=== PATIENT | female | born 2000 | race African-American/Black ===

== ENCOUNTER 2025-03-12 08:42 | Outpatient (AMB) | payer OTHER, SELFPAY ==
--- NOTE | 2025-03-12 08:31 | A.OFFPC_ITS ---
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 Accompanied by: Self / Same As Patient Allergies No Known Allergies Allergy (Verified 03/12/25 08:47) Medication List - Last Reconciled 03/12/25 by Alexia Bejarano MD duloxetine 60 mg PO DAILY omeprazole 20 mg PO DAILY omeprazole 40 mg PO BID Tobacco use date assessed: 03/12/25 Dental Screening Dental Screen Date: 03/12/25 Did you have a dental visit in the last 12 months?: Yes Did you have a dental problem in the last 6 months where you did not have access to dental care?: No Was dental information given to patient?: Patient has dentist HPI HPI Comments History of Present Illness Details The patient is a 24-year-old female presenting to reestablish care and for a physical. Anxiety and Depression: The patient reports ongoing anxiety and depression, with high scores noted, PHQ9 score of 18, GAD7 score of 14. She has been non-adherent with her prescribed duloxetine. She recently started teletherapy with [facility] about two weeks ago and has had one session so far. Gastroesophageal Reflux Disease: The patient has a history of heartburn and has not been taking her prescribed omeprazole (Prilosec). She manages symptoms by drinking water, which provides occasional relief. Symptoms are sometimes triggered by spicy foods or can occur randomly, and are exacerbated by eating late at night or lying down after meals. She denies use of NSAIDs like ibuprofen or Aleve and uses only Tylenol. Fatigue: The patient reports feeling sluggish and having low energy every day. She has also not been taking her prescribed iron supplements. Health Maintenance: The patient had a gynecology appointment for a Pap smear but had to reschedule because she was on her period and has not yet made the new appointment. Medical History: - Anxiety - Depression - Gastroesophageal reflux disease - History of iron deficiency Medications: - Duloxetine for anxiety and depression (not currently taking) - Iron supplements (not currently taking ) - Omeprazole (Prilosec) for GERD (not cu rrently taking) - Tylenol as needed for pain Social History: - Employment: The patient is currently w orking. - Stress Management: The patient reports not really doing much for decompression or to get out of the house. - Hobbies and Interests: The patient was supposed to travel to [place] but cancelled and is now planning a trip to [place] in May. Review of Systems - Constitutional: Reports feeling sluggi sh and having low energy every day. - Gastrointestinal: Reports heartburn ma naged with water, which is sometimes effective. She reports regular bowel movements. - Psychiatric: Reports anxiety and depre ssion. Physical Exam - HEENT: Ears are clear on the left and right, with normal tympanic membranes and no redness. - Neck: No cervical lymph node enlargeme nt. Carotids are clear with no bruits. - Lungs: Clear to auscultation. - Cardiovascular: Normal heart sounds, s oft murmur noted. - Abdomen: Soft, non tender, non distend ed , with normal bowel sounds. - Extremities: No swelling in both legs. 2+ DP pulses Assessment and Plan 1. Anxiety and Depression - The patient's depression and anxiety s cores are high. - She has initiated therapy, which is a positive step. - She has been non-adherent with duloxet ine. - Plan is to restart duloxetine at a sta rting dose of 30 mg once daily to help manage symptoms in conjunction with therapy. - Will re-evaluate in three months. 2. Gastroesophageal Reflux Disease (GERD ) - The patient continues to experience he artburn and has been non-adherent with omeprazole. - Plan is to send a prescription for ome prazole to be taken daily for two weeks, one hour before eating, to control symptoms and allow healing. - Advised against eating late at night. 3. Fatigue and Health Maintenance - The patient reports daily fatigue and has not been taking her iron supplements. - She is also due for a gynecological ex am. - Plan includes ordering fasting blood w ork to check an iron profile, vitamin D, B12, and kidney function. 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 4. Follow-up - Plan for a follow-up visit in three mo nths to monitor medication tolerance, adherence, symptom improvement Discussion Notes I have discussed the plan with the patient. For her anxiety and depression, I have sent a prescription for duloxetine 30 mg daily, explaining that since she has been off it, we will restart at a lower dose. I explained that this, in addition to her ongoing therapy, will help improve her symptoms, and we will reassess in three months to see how she is doing, with the possibility of discontinuing it if she improves. For her heartburn, I explained the importance of taking omeprazole to prevent irritation and the potential for an ulcer, and a prescription was sent for her. I instructed her to take it for two solid weeks every day, about an hour before eating. I have provided her with a lab order for fasting blood work and emphasized the importance of completing it. I also stressed the need to call and reschedule her gynecology appointment. We will have a follow-up in three months. Patient Instructions - Please get your fasting blood work don e. I have given you the paper for the lab. - Start taking duloxetine 30 mg every da y for anxiety and depression. - For your heartburn, take omeprazole ev sivakumar day for two weeks. Take it about an hour before you eat. - Please follow through with your therap y sessions. - Call your plant electrical engineer's office to res chedule your appointment for a Pap smear. [facility] Medical History (Updated 03/12/25 @ 16:50 by Alexia Bejarano MD) Vitamin D deficiency Routine adult health maintenance Anemia, unspecified GERD (gastroesophageal reflux disease) Depression Anxiety Surgical History History of tonsillectomy Family History Mother Hypertension Family/Other No problems noted. Father Hypertension Diabetes mellitus Social History Housing: Apartment Patient Tobacco Use Status: Never used Tobacco e-Cigarette/Vaping Use: Never Used service: No Current occupational status: employed Current occupation: [employer] employee Cognitive needs: No Hearing needs: No Vision needs: No Questionnaire PHQ-9 Over the last 2 weeks, how often have you been bothered by any of the following problems? 1. Little interest or pleasure in doing things: more than half the days 2. Feeling down, depressed, or hopeless: more than half the days 3. Trouble falling or staying asleep, or sleeping too much: more than half the days 4. Feeling tired or having little energy: more than half the days 5. Poor appetite or overeating: more than half the days 6. Feeling bad about yourself - or that you are a failure or have let yourself or your family down: more than half the days 7. Trouble concentrating on things, such as reading the newspaper or watching television: more than half the days 8. Moving or speaking so slowly that other people could have noticed. Or the opposite - being so fidgety or restless that you have been moving around a lot more than usual: more than half the days 9. Thoughts that you would be better off or of hurting yourself in some way: more than half the days Total score: 18 Depression Screening Interpretation: Positive Depression Screening Done: Yes 47071 - PHQ-9 Billing: Yes Source: Developed by Drs. Maximo Chairez, Diane Tao, Rajendra Wilson and colleagues, with an educational melissa from [employer]. Thrive Questionnaire Date Thrive assessed: 03/12/25 I am a: Patient What is your living situation today?: I have a steady place to live Within the past 12 months, did the food you bought not last and you didn't have the money to get more?: Never true Within the past 12 months, did you worry whether your food would run out before you got money to buy more?: Never true Do you have trouble paying for medicines?: No Do you have trouble getting transportation to medical appointments?: No Do you have trouble paying your heating and electricity bill?: No Do you have trouble taking care of your child, family member or friend?: No Do you have trouble with day-to-day activities such as bathing, preparing meals, shopping, managing finances, etc.?: No Are you currently unemployed and looking for a job?: No Are you interested in more education?: Yes Please select the resources that you would like help with: Education THRIVE Score: 0 AUDIT C Alcohol Use Questionnaire (AUDIT-C) 1. How often do you have a drink containing alcohol?: Never 3. How often do you have six or more drinks on one occasion?: Never Total Score: 0 DAVID-7 AMB Questionnaire DAVID-7 Date DAVID - 7 assessed: 03/12/25 Feeling nervous, anxious, or on edge: 2 = More than half the days Not being able to stop or control worryin = More than half the days Worrying too much about different things: 2 = More than half the days Trouble relaxin = More than half the days Being so restless that it is hard to sit still: 2 = More than half the days Becoming easily annoyed or irritable: 2 = More than half the days Feeling afraid as if something awful might happen: 2 = More than half the days Total DAVID-7 score (0-4 normal; 5-9 mild; 10-14 moderate; 15-21 severe): 14 Source: Developed by Drs. Maximo Chairez, Diane Tao, Rajendra Wilson and colleagues, with an educational melissa from [employer]. Physical exam (Primary Care) Vital Signs: Last Vital Signs Temp 97.1 F 03/12/25 08:45 Pulse 71 03/12/25 08:45 Resp 16 03/12/25 08:45 BP 120/76 03/12/25 08:45 Pulse Ox 97 03/12/25 08:45 Oxygen Delivery Method Room Air 03/12/25 08:45 BMI result Body Mass Index 39.3 Tobacco/Smoking Status: Tobacco use Status Tobacco use date assessed 03/12/25 03/12/25 08:32 Patient Tobacco Use Status Never used Tobacco 03/12/25 08:32 e-Cigarette/Vaping Use Never Used 03/12/25 08:32 PHQ-9: PHQ-9 Score PHQ-9: Total score 18 03/12/25 09:47 Depression Screening Interpretation: Positive Thrive Assessment: Date of Thrive Assessment Date Thrive assessed 03/12/25 03/12/25 09:26 Coding Level of Care Code Est Pt Prev Care 18-39y(10936) Diagnoses Routine adult health maintenance Z00.00 Iron deficiency anemia, unspecified iron deficiency anemia type D50.9 Anemia type: iron deficiency Iron deficiency anemia type: unspecified iron deficiency Vitamin D deficiency E55.9 Moderate episode of recurrent major depressive disorder F33.1 Depression Type: major depressive disorder Major depression recurrence: recurrent Active/Remission status: currently active Major depression episode severity: moderate Anxiety F41.9 Additional Codes PHQ-9 - 87473 - PHQ-9 Billing: Yes ([id number]) Assessment & Plan Assessment & Plan (1) Routine adult health maintenance: Code(s): Z00.00 - Encounter for general adult medical examination without abnormal findings Category: Medical (2) Anemia, unspecified: Code(s): D64.9 - Anemia, unspecified Category: Medical Qualifiers: Anemia type: iron deficiency Iron deficiency anemia type: unspecified iron deficiency Qualified Code(s): D50.9 - Iron deficiency anemia, unspecified (3) Vitamin D deficiency: Code(s): E55.9 - Vitamin D deficiency, unspecified Category: Medical (4) Depression: Code(s): F32.A - Depression, unspecified Category: Medical Qualifiers: Depression Type: major depressive disorder Major depression recurrence: recurrent Active/Remission status: currently active Major depression episode severity: moderate Qualified Code(s): F33.1 - Major depressive disorder, recurrent, moderate (5) Anxiety: Code(s): F41.9 - Anxiety disorder, unspecified Category: Medical Plan Plan - A prescription for duloxetine 30 mg to be taken once daily was sent. - A prescription for omeprazole was sent, with instructions to take it daily for two weeks an hour before eating. - Ordered fasting blood work to include an iron profile, vitamin D, B12, and kidney function tests. - Advised patient to reschedule her gynecology appointment for a Pap smear. - Encouraged continuation of therapy sessions. - Follow up in 3 months Orders: Orders Complete Blood Count Auto Diff Today D64.9 - Anemia, unspecified, E53.8 - Deficiency of other specified B group vitamins, E55.9 - Vitamin D deficiency, unspecified, Z00.00 - Encounter for general adult medical examination without abnormal findings Lipid Panel Today D64.9 - Anemia, unspecified, E53.8 - Deficiency of other specified B group vitamins, E55.9 - Vitamin D deficiency, unspecified, Z00.00 - Encounter for general adult medical examination without abnormal findings Vitamin D 25-OH Total Today D64.9 - Anemia, unspecified, E53.8 - Deficiency of other specified B group vitamins, E55.9 - Vitamin D deficiency, unspecified, Z00.00 - Encounter for general adult medical examination without abnormal findings IRON PROFILE Today D64.9 - Anemia, unspecified, E53.8 - Deficiency of other specified B group vitamins, E55.9 - Vitamin D deficiency, unspecified, Z00.00 - Encounter for general adult medical examination without abnormal findings Comprehensive Met. Panel Today D64.9 - Anemia, unspecified, E53.8 - Deficiency of other specified B group vitamins, E55.9 - Vitamin D deficiency, unspecified, Z00.00 - Encounter for general adult medical examination without abnormal findings Vitamin B12 Today D64.9 - Anemia, unspecified, E53.8 - Deficiency of other specified B group vitamins, E55.9 - Vitamin D deficiency, unspecified, Z00.00 - Encounter for general adult medical examination without abnormal findings Medications: New omeprazole 20 mg PO DAILY 90 caps 0RF duloxetine 30 mg PO DAILY 90 caps 2RF
[2025-03-12 08:45] VITALS: BP 120/76; PULSE 71; RESP 16; TEMP 36.2; O2SAT 97; BMI 39.3
== END 2025-03-12 09:20 | disposition home or self-care (01) ==
LOC: HO.HMCHD 08:43
PROVIDERS: PCP Internal Medicine; Visit Provider Internal Medicine
DX: Z00.00 Encounter for general adult medical examination without abnormal findings (principal); D50.9 Iron deficiency anemia, unspecified; E55.9 Vitamin D deficiency, unspecified; F33.1 Major depressive disorder, recurrent, moderate; F41.9 Anxiety disorder, unspecified

== ENCOUNTER → 2025-03-12 08:42 | Outpatient (BNVA) | payer OTHER, SELFPAY | PROVIDERS: PCP Internal Medicine; Visit Provider Internal Medicine | DX: Z00.00 Encounter for general adult medical examination without abnormal findings (principal); D50.9 Iron deficiency anemia, unspecified; E55.9 Vitamin D deficiency, unspecified; F33.1 Major depressive disorder, recurrent, moderate; F41.9 Anxiety disorder, unspecified | CPT/HCPCS: 96127 ==